=== PATIENT | female | born 1970 | race Caucasian/White ===

== ENCOUNTER 2024-04-15 14:47 | Outpatient (AMB) | payer OTHER, SELFPAY ==
--- NOTE | 2024-04-15 14:44 | A.OFFVIS_ITS ---
Vital Signs 04/15/24 14:49 Height 5 ft 6 in Weight 128 lb 15.527 oz BMI 20.8 BP 142/80 H Blood Pressure Location Rt brachial Position Sitting Pulse 100 Pulse Source Pulse Oximeter Pulse Oximetry (%) 95 Oxygen Delivery Method Room Air Intake Visit Reasons: asthma Allergies No Known Allergies Allergy (Verified 04/15/24 14:53) HPI HPI asthma: Details: Jess is a 53 year old female, former minimal smoker less than 5 pack year history, with underlying asthma, chronic sinusitis, and seasonal allergies. She was referred by ENT for pulmonary evaluation as she has had increased frequency of bronchitis. She reports reports recurrent URI infections, 2-3 per year, over the last few years, recently requiring 4 courses of antibiotics and prednisone over the last few months. She continues to report nonproductive cough, wheezing, dyspnea on exertion. She denies chest tightness. She reports asthma diagnosed as a teenager, never requiring intubation related to respiratory distress. She is not on any daily inhalers, uses albuterol MDI infrequently. She reports multiple seasonal allergies, currently on singulair and has been on allergen immunotherapy in the past but has put on hold with recent URI. She denies any occupational exposures, employed as a [employer] professor. She denies any pertinent family history. [facility] Social History (Updated 04/15/24 @ 14:57 by Jigna Read [facility]) Patient Tobacco Use Status: Former Tobacco user Years Smoked: 34 years ago Review of Systems Const Denies chills, Denies excessive sweating, Denies fever(s), Denies headache(s) and Denies night sweats Eyes Denies dry eyes, Denies irritation and Denies itchy eyes ENT Reports Normal hearing present, Denies headache(s), Denies nasal congestion, Denies nasal discharge and Denies sore throat Card Denies chest pain, Denies chest pain at rest, Denies chest pain with activity, Denies claudication, Denies leg edema, Denies dyspnea, Reports dyspnea on exertion, Denies orthopnea and Denies paroxysmal nocturnal dyspnea Resp Denies chest congestion, Reports cough (wet), Denies excessive phlegm production, Denies pain on inspiration, Denies pain with cough, Denies dyspnea, Reports dyspnea on exertion, Denies stridor and Reports wheezing Musc Denies myalgias Neuro Reports Normal hearing present and Denies headache(s) Endo Denies excessive sweating Bon/Lymph Denies lymphadenopathy Aller/Immun Denies itchy eyes, Denies seasonal rhinorrhea and Reports wheezing Physical Exam Vital Signs: Last Vital Signs Pulse 100 04/15/24 14:49 BP 142/80 H 04/15/24 14:49 Pulse Ox 95 04/15/24 14:49 Oxygen Delivery Method Room Air 04/15/24 14:49 BMI result Body Mass Index 20.8 Const General: cooperative, healthy appearing, comfortable, no acute distress, well developed and alert Orientation/consciousness: patient oriented x3 Limitations: no limitations HEENT Head: Yes normal to inspection, Yes normocephalic and Yes atraumatic Ears: hearing grossly normal bilaterally and external ears normal Eyes General: appearance normal, both eyes and all related structures Eyelids: Yes eyelids normal Sclerae: sclerae normal EOM: EOMs intact bilaterally Neck Neck: Yes normal visual inspection and Yes no lymphadenopathy Lymphatic: no lymphadenopathy noted Chest Chest palpation & inspection: normal inspection of the chest Resp Effort & Inspection: normal respiratory effort, able to speak in complete sentences, no audible wheezes, Actively coughing Quality: wet, no stridor, not tachypneic, no tripod positioning and no use of accessory muscles Auscultation: clear to auscultation bilaterally Cardio Jugular venous distension: no JVD Rate: regular rate Rhythm: regular rhythm Skin Other: warm, dry General skin exam: no rashes or lesions noted Neuro General: patient oriented x3 Cranial nerves: Yes Normal hearing present Cognition (Neuro): normal cognition Gait exam (Neuro): Normal gait present Extrem General: Yes normal to inspection, Yes capillary refill normal, Yes no clubbing, cyanosis or edema and Yes no pedal edema Psych Appearance: grossly normal and well kempt Speech and movement: Normal speech and movement present and Clear speech present Affect: normal affect Attitude: cooperative Thought process: Normal thought process present Thought content: Normal thought content present Insight: Good insight present (Psych) Judgement: Good judgement present (Psych) Assessment & Plan Assessment & Plan (1) Asthma: Code(s): J45.909 - Unspecified asthma, uncomplicated Category: Medical (2) Bronchitis, mucopurulent recurrent: Code(s): J41.1 - Mucopurulent chronic bronchitis Category: Medical Plan Jess's symptoms are likely related to underlying asthma with an allergic component. Will send for PFT and CXR to evaluate. Will also send for labs to assess for any immunodeficiency as she reports recurrent URI. Will empirically start Breo. Discussed importance of good oral hygiene. All questions were answered and patient is in agreement of plan. Will follow up to review results. Orders: Orders XR chest 2V 04/15/24 R05.9 - Cough, unspecified Immunoglobulins,IgG IgA IgM 04/15/24 J41.1 - Mucopurulent chronic bronchitis Immunoglobulin G Subclasses 04/15/24 J41.1 - Mucopurulent chronic bronchitis Complete Blood Count Auto Diff 04/15/24 J41.1 - Mucopurulent chronic bronchitis PFT pulmonary function test Today J45.909 - Unspecified asthma, uncomplicated Medications: New fluticasone furoate-vilanterol 100-25 mcg/dose (Breo Ellipta) 1 inh inhalation DAILY 60 ea 6RF albuterol sulfate 90 mcg/actuation 2 puffs inhalation Q4-6H PRN 8.5 grams 3RF shortness of breath or wheezing Coding Level of Care Code New Pt Level 4 (70125) Diagnoses Asthma J45.909 Bronchitis, mucopurulent recurrent J41.1
[2024-04-15 14:49] VITALS: BP 142/80; PULSE 100; O2SAT 95; BMI 20.8
== END 2024-04-15 15:23 | disposition home or self-care (01) ==
PROVIDERS: PCP Family Medicine; Referring Provider Family Medicine; Visit Provider Nurse Practitioner Family
DX: J45.909 Unspecified asthma, uncomplicated (principal); J41.1 Mucopurulent chronic bronchitis
CPT/HCPCS: 99204

== ENCOUNTER → 2024-04-15 14:47 | Outpatient (BNVA) | payer OTHER, SELFPAY | PROVIDERS: PCP Family Medicine; Referring Provider Family Medicine; Visit Provider Nurse Practitioner Family ==